=== PATIENT | female | born 1980 | race Caucasian/White ===

== ENCOUNTER 2018-10-12 21:49 | Emergency (ER) | payer SELFPAY ==
[2018-10-12] MEDS ORDERED: guaiFENesin/Codeine Phosphate 100 mg/10 mg 5 ml UD Cup ONE (22:38)
[2018-10-12] MEDS ORDERED: Dexamethasone 10 MG/ML VIAL ONE (22:38)
[2018-10-12] MEDS ORDERED: Ibuprofen 800 MG TAB ONE (22:38)
== END 2018-10-12 23:00 | disposition home or self-care (01) ==
LOC: MADERS 21:49
DX: J06.9 Acute upper respiratory infection, unspecified (principal)
CPT/HCPCS: 96372; J1100

== ENCOUNTER 2019-11-01 20:43 | Emergency (ER) | payer SELFPAY ==
--- NOTE | 2019-11-01 21:23 | RAD ---
TWO VIEW CHEST: 11/01/19 HISTORY: Cough. Lungs appear clear and well aerated. No infiltrate. Heart and mediastinum appear normal. IMPRESSION: Unremarkable chest. POS: [facility]
[2019-11-01] MEDS ORDERED: Oseltamivir 75 MG CAP ONE (21:36)
[2019-11-01] MEDS ORDERED: Ibuprofen 800 MG TAB ONE (21:36)
[2019-11-01] MEDS ORDERED: Phenergan/Codeine 10-6.25mg/5ml UDCUP ONE (21:36)
== END 2019-11-01 21:41 | disposition home or self-care (01) ==
LOC: MADERS 20:43
DX: J10.1 Influenza due to other identified influenza virus with other respiratory manifestations (principal)
CPT/HCPCS: 71046; 87804

== ENCOUNTER 2021-08-11 19:21 | Emergency (ER) | payer SELFPAY ==
[2021-08-11] MEDS ORDERED: Metoclopramide HCl 10 MG/2 ML VIAL ONE (20:40)
[2021-08-11] MEDS ORDERED: diphenhydrAMINE 50 MG/ML VIAL ONE (20:40)
[2021-08-11] MEDS ORDERED: Ketorolac Tromethamine 30 MG/ML VIAL ONE (20:40)
[2021-08-11] MEDS ORDERED: Dexamethasone 10 MG/ML VIAL ONE (20:40)
[2021-08-11] MEDS ORDERED: Sodium Chloride 0.9% 1,000 ML ONE (22:47)
[2021-08-11 23:08] LABS: #Basophils 0.1 thou/uL (0.0-0.2); #Lymphocytes 0.4 thou/uL (1.20-3.40); #Monocytes 0.3 thou/uL (0.11-0.59); #Neutrophils 7.4 thou/uL (1.40-6.50); %Basophils 0.7 % (0.0-1.0); %Eosinophils 0.1 % (0.0-10.0); %Lymphocytes 5.2 % (21.0-51.0); %Monocytes 4.1 % (0.0-10.0); Hemoglobin 13.1 g/dL (12.0-16.0); Mean Corpuscular HGB CONC 33.2 g/dL (32.0-36.0); Mean Corpuscular Hemoglobin 30.4 pg (27.0-31.0); Mean Corpuscular Volume 91.4 fL (78.0-98.0); Mean Platelet Volume 6.9 fL (7.4-10.4); Platelet Count 278 thou/uL (130-400); RBC Distribution Width 11.5 % (11.5-14.5); White Blood Cell (WBC) Count 8.2 thou/uL (4.8-10.8)
[2021-08-11 23:25] LABS: ALT (SGPT) 175 U/L (8-55); AST (SGOT) 112 U/L (5-34); Albumin 4.1 g/dL (3.5-5.0); Alkaline Phosphatase 202 U/L (40-110); Anion Gap 15 mmol/L (10-20); BUN (Urea Nitrogen) 6 mg/dL (7.0-18.7); Bilirubin, Total 0.7 mg/dL (0.2-1.2); Calc. Creatinine Clearance 0 mL/min (70-130); Calcium 9.4 mg/dL (7.8-10.44); Carbon Dioxide 21 mmol/L (22-29); Chloride 107 mmol/L (98-107); Globulin 3.1 g/dL (2.4-3.5); Glucose 99 mg/dL (70-105); Protein, Total 7.2 g/dL (6.0-8.3); Sodium 140 mmol/L (136-145)
[2021-08-11 23:28] LABS: Potassium 2.9 mmol/L (3.5-5.1)
[2021-08-11] MEDS ORDERED: Potassium Chloride 20 MEQ TAB ONE (23:52)
[2021-08-12 16:40] LABS: SARS-CoV-2 PCR by NAA DETECTED (NotDetected)
== END 2021-08-12 | disposition home or self-care (01) ==
LOC: MADERS 19:21
DX: U07.1 COVID-19 (principal); E87.6 Hypokalemia; R74.01 Elevation of levels of liver transaminase levels
CPT/HCPCS: 36415; 71045; 80053; 83605; 84484; 85025; 93005; 96374; 96375; J1100; J1200; J1885; J2765; J7050; J7620; U0003; U0005

== ENCOUNTER 2024-12-20 17:01 | Emergency (ER) | payer SELFPAY ==
[2024-12-20] MEDS ORDERED: Amoxicillin/Potassium Clav 875 MG TAB ONE (17:33)
== END 2024-12-20 17:40 | disposition home or self-care (01) ==
LOC: MADERS 17:01
DX: J01.40 Acute pansinusitis, unspecified (principal)
CPT/HCPCS: 99283